=== PATIENT | female | born 1995 | race African-American/Black ===

== ENCOUNTER 2022-05-13 18:55 | Emergency (ER) | payer MEDICAID ==
[~2022-05-13] VITALS: Ht 157.5 cm; Wt 68.0 kg
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
[2022-05-13] MEDS ORDERED: CYCLOBENZAPRINE 10 MG TABLET PO ONE (20:30)
[2022-05-13] MEDS ORDERED: KETOROLAC TROMETHAMINE INJ 60 MG/2 ML VIAL IM ONE (20:30)
--- NOTE | 2022-05-13 20:41 | NUR ---
PREG WAIVER SIGNED
--- NOTE | 2022-05-13 20:45 | NUR ---
URINE SAMPLE SENT TO LAB
[2022-05-13] MEDS ORDERED: KETOROLAC TROMETHAMINE INJ 30 MG/ML VIAL ONE (20:51)
--- NOTE | 2022-05-13 21:00 | NUR ---
PATIENT TAKEN TO RADIOLOGY DEPT. AMBULATORY FOR X-RAY
[2022-05-13] MEDS ORDERED: IBUP-1955 PO (23:02)
[2022-05-13] MEDS ORDERED: CYCL10TA9 PO (23:02)
--- NOTE | 2022-05-13 23:15 | NUR ---
Patient discharged to home in stable condition. Written and verbal after care instructions given. Patient verbalizes understanding of instruction.
[2022-05-13 23:22] VITALS: BP 120/70
== END 2022-05-13 23:15 | disposition home or self-care (01) ==
LOC: ER 18:57
DX: S16.1XXA Strain of muscle, fascia and tendon at neck level, initial encounter (principal); M25.522 Pain in left elbow; Z88.8 Allergy status to other drugs, medicaments and biological substances; Z79.899 Other long term (current) drug therapy; V89.2XXA Person injured in unspecified motor-vehicle accident, traffic, initial encounter; Y93.89 Activity, other specified; Y92.89 Other specified places as the place of occurrence of the external cause; Y99.8 Other external cause status
CPT/HCPCS: 99284; 96372; 72040; 73080; 84703; J1885